=== PATIENT | male | born 1965 | race Caucasian/White ===

== ENCOUNTER 2021-09-16 09:38 | Inpatient (IN) | payer SELFPAY ==
[2021-09-16 10:17] LABS: #Basophils 0.1 thou/uL (0.0-0.2); #Eosinphils 0.1 thou/uL (0.0-0.7); #Lymphocytes 1.8 thou/uL (1.20-3.40); #Monocytes 0.7 thou/uL (0.11-0.59); #Neutrophils 9.2 thou/uL (1.40-6.50); %Basophils 0.6 % (0.0-1.0); %Eosinophils 0.8 % (0.0-10.0); %Lymphocytes 14.8 % (21.0-51.0); %Monocytes 6.1 % (0.0-10.0); %Neutrophils 77.8 % (42.0-75.0); Hemoglobin 14.7 g/dL (14.0-18.0); Mean Corpuscular Hemoglobin 26.6 pg (27.0-31.0); Mean Corpuscular Volume 83.2 fL (78.0-98.0); Mean Platelet Volume 7.7 fL (7.4-10.4); Platelet Count 195 thou/uL (130-400); RBC Distribution Width 12.1 % (11.5-14.5); Red Blood Cell (RBC) Count 5.52 mill/uL (4.70-6.10); White Blood Cell (WBC) Count 11.8 thou/uL (4.8-10.8)
[2021-09-16 10:33] LABS: ALT (SGPT) 23 U/L (8-55); AST (SGOT) 20 U/L (5-34); Albumin 3.9 g/dL (3.5-5.0); Alkaline Phosphatase 68 U/L (40-110); Anion Gap 8 mmol/L (10-20); BUN (Urea Nitrogen) 14 mg/dL (8.4-25.7); Bilirubin, Total 1.3 mg/dL (0.2-1.2); Calc. Creatinine Clearance 0 mL/min (70-130); Carbon Dioxide 34 mmol/L (22-29); Chloride 100 mmol/L (98-107); Globulin 2.2 g/dL (2.4-3.5); Glucose 198 mg/dL (70-105); Potassium 4.6 mmol/L (3.5-5.1); Protein, Total 6.1 g/dL (6.0-8.3); Sodium 137 mmol/L (136-145)
[2021-09-16 10:55] LABS: CKMB 5.3 ng/mL (0-6.6)
[2021-09-16] MEDS ORDERED: Aspirin Chewable 81 MG TAB ONE (11:01)
[2021-09-16] MEDS ORDERED: Nitroglycerin 2% Ointment 1 INCH/1 GM Packet ONE (11:01)
[2021-09-16] MEDS ORDERED: Acetaminophen 325 MG TAB PO PRN (12:27)
[2021-09-16] MEDS ORDERED: Ondansetron PF 4 MG/2 ML Vial IVP PRN (12:27)
[2021-09-16] MEDS ORDERED: Furosemide 40 MG/4 ML VIAL ONE (12:28)
[2021-09-16] MEDS ORDERED: Enoxaparin Sodium 40 MG/0.4 ML SYRINGE SC SCH (12:30)
[2021-09-16] MEDS ORDERED: Labetalol HCl 100 MG/20 ML VIAL SLOW IVP PRN (12:33)
[2021-09-16] MEDS ORDERED: Lisinopril 10 MG TAB PO SCH (12:45)
[2021-09-16] MEDS ORDERED: Nitroglycerin 0.4 MG TAB (25 Tab Bottle) SL PRN (13:14)
[2021-09-16 13:21] LABS: Hemoglobin A1c 9.4 % (4.0-6.0); Troponin I 0.028 ng/mL (< 0.028)
[2021-09-16] MEDS ORDERED: Dextrose 50% Abboject 50 ML SYRINGE SLOW IVP PRN (14:45)
[2021-09-16] MEDS ORDERED: Dextrose 5% in Water 1,000 ML IV PRN (14:45)
[2021-09-16 15:45] VITALS: BMI 38.5
[2021-09-16] MEDS ORDERED: Furosemide 40 MG/4 ML VIAL SLOW IVP SCH (16:15)
[2021-09-16] MEDS ORDERED: Spironolactone 25 MG TAB PO SCH (16:15)
[2021-09-16] MEDS: Furosemide 40 MG/4 ML VIAL SLOW IVP SCH (16:41)
[2021-09-16] MEDS ORDERED: FLU VACC QS2021-22(6MOS UP)/PF 60 MCG/0.5 ML SYRINGE IM ONE (17:00)
[2021-09-16] MEDS ORDERED: Prevnar 13-Val Conj/PF 0.5 ML SYRINGE IM ONE (17:00)
[2021-09-16] MEDS ORDERED: Carvedilol 6.25 MG TAB PO SCH (17:00)
[2021-09-16 17:01] LABS: Troponin I 0.038 ng/mL (< 0.028)
[2021-09-16] MEDS ORDERED: Communication Order-Pharmacy FS SCH (17:45)
[2021-09-16 20:22] LABS: Anion Gap 14 mmol/L (10-20); BUN (Urea Nitrogen) 17 mg/dL (8.4-25.7); Calc. Creatinine Clearance 126 mL/min (70-130); Carbon Dioxide 32 mmol/L (22-29); Chloride 94 mmol/L (98-107); Glucose 172 mg/dL (70-105); Potassium 3.8 mmol/L (3.5-5.1); Sodium 136 mmol/L (136-145)
[2021-09-16] MEDS: Sacubitril 49 MG/Valsartan 51 MG TABLET PO SCH (20:57)
[2021-09-16] MEDS: Atorvastatin Calcium 20 MG TAB PO SCH (20:57)
[2021-09-16] MEDS ORDERED: Methocarbamol 500 MG TAB PO SCH (21:15)
[2021-09-16 21:42] LABS: Magnesium 2.1 mg/dL (1.6-2.6)
[2021-09-17] MEDS ORDERED: Methocarbamol 500 MG TAB PO SCH (04:58)
[2021-09-17 05:10] LABS: #Basophils 0.1 thou/uL (0.0-0.2); #Eosinphils 0.1 thou/uL (0.0-0.7); #Monocytes 0.9 thou/uL (0.11-0.59); #Neutrophils 7.6 thou/uL (1.40-6.50); %Basophils 0.6 % (0.0-1.0); %Eosinophils 1.4 % (0.0-10.0); %Lymphocytes 18.7 % (21.0-51.0); %Monocytes 8.6 % (0.0-10.0); %Neutrophils 70.8 % (42.0-75.0); Hemoglobin 15.3 g/dL (14.0-18.0); Mean Corpuscular HGB CONC 31.2 g/dL (32.0-36.0); Mean Corpuscular Hemoglobin 26.1 pg (27.0-31.0); Mean Corpuscular Volume 83.5 fL (78.0-98.0); Platelet Count 227 thou/uL (130-400); RBC Distribution Width 12.1 % (11.5-14.5); Red Blood Cell (RBC) Count 5.87 mill/uL (4.70-6.10); White Blood Cell (WBC) Count 10.7 thou/uL (4.8-10.8)
[2021-09-17 05:28] LABS: Anion Gap 13 mmol/L (10-20); BUN (Urea Nitrogen) 15 mg/dL (8.4-25.7); Calc. Creatinine Clearance 169 mL/min (70-130); Calcium 9.1 mg/dL (7.8-10.44); Carbon Dioxide 32 mmol/L (22-29); Cardiac Risk 5.5 (Less than 4.5); Chloride 98 mmol/L (98-107); Cholesterol 248 mg/dl (< 200 Desired); Glucose 179 mg/dL (70-105); HDL Cholesterol 45 mg/dL (>60 Neg Risk); LDL Cholesterol, Calculated 171 mg/dL; Potassium 3.9 mmol/L (3.5-5.1); Sodium 139 mmol/L (136-145); Triglycerides 158 mg/dL (Less than 150)
[2021-09-17] MEDS: Morphine 4 MG/ML VIAL SLOW IVP SCH ×2 (05:56→08:14)
[2021-09-17] MEDS: Furosemide 40 MG/4 ML VIAL SLOW IVP SCH (06:30)
[2021-09-17] MEDS ORDERED: Carvedilol 6.25 MG TAB PO SCH (08:30)
[2021-09-17] MEDS ORDERED: Spironolactone 25 MG TAB PO SCH ×2 (08:30→09:00)
[2021-09-17] MEDS ORDERED: Enoxaparin Sodium 40 MG/0.4 ML SYRINGE SC SCH (09:00)
[2021-09-17] MEDS ORDERED: Lisinopril 10 MG TAB PO SCH (09:00)
[2021-09-17] MEDS: Sacubitril 49 MG/Valsartan 51 MG TABLET PO SCH ×2 (10:31→21:52)
[2021-09-17] MEDS: Aspirin 81 mg Enteric Coated Tablet PO SCH (10:31)
[2021-09-17 10:51] LABS: SARS-CoV-2 PCR by NAA Not Detected (NotDetected)
[2021-09-17] MEDS: Carvedilol 6.25 MG TAB PO SCH (17:46)
[2021-09-17] MEDS: HumaLOG 300 UNITS/3 ML VIAL SC PRN ×2 (18:47→21:52)
[2021-09-17] MEDS: Atorvastatin Calcium 20 MG TAB PO SCH (21:52)
[2021-09-18] MEDS: Sacubitril 49 MG/Valsartan 51 MG TABLET PO SCH ×2 (05:04→21:24)
[2021-09-18] MEDS: Carvedilol 6.25 MG TAB PO SCH ×3 (05:05→17:23)
[2021-09-18] MEDS: Spironolactone 25 MG TAB PO SCH (09:28)
[2021-09-18] MEDS: Aspirin 81 mg Enteric Coated Tablet PO SCH (09:28)
[2021-09-18 09:48] LABS: Anion Gap 14 mmol/L (10-20); BUN (Urea Nitrogen) 17 mg/dL (8.4-25.7); Calc. Creatinine Clearance 152 mL/min (70-130); Calcium 8.8 mg/dL (7.8-10.44); Carbon Dioxide 27 mmol/L (22-29); Chloride 100 mmol/L (98-107); Glucose 291 mg/dL (70-105); Potassium 5.1 mmol/L (3.5-5.1); Sodium 136 mmol/L (136-145)
[2021-09-18] MEDS: HumaLOG 300 UNITS/3 ML VIAL SC PRN ×2 (11:40→17:22)
[2021-09-18] MEDS: Atorvastatin Calcium 20 MG TAB PO SCH (21:24)
[2021-09-19] MEDS ORDERED: Carvedilol 25 MG TAB PO SCH (08:00)
[2021-09-19] MEDS: Spironolactone 25 MG TAB PO SCH (08:10)
[2021-09-19] MEDS: Sacubitril 49 MG/Valsartan 51 MG TABLET PO SCH ×3 (08:10→20:52)
[2021-09-19] MEDS: Carvedilol 6.25 MG TAB PO SCH (08:10)
[2021-09-19] MEDS: Aspirin 81 mg Enteric Coated Tablet PO SCH (08:10)
[2021-09-19] MEDS ORDERED: Carvedilol 6.25 MG TAB PO SCH (08:45)
[2021-09-19] MEDS ORDERED: Alogliptin 6.25 MG TAB PO SCH (09:00)
[2021-09-19] MEDS ORDERED: Midazolam HCl 2 mg/2 ml Vial ONE (09:29)
[2021-09-19] MEDS ORDERED: Ondansetron PF 4 MG/2 ML Vial ONE (10:00)
[2021-09-19] MEDS ORDERED: Sodium Chloride 0.9% 200 ML IV PRN (10:03)
[2021-09-19] MEDS ORDERED: Acetaminophen/Codeine 30-300mg Tablet PO PRN ×2 (10:03)
[2021-09-19] MEDS ORDERED: Nitroglycerin 0.4 MG TAB (25 Tab Bottle) SL PRN (10:03)
[2021-09-19] MEDS: HumaLOG 300 UNITS/3 ML VIAL SC PRN (17:01)
[2021-09-19] MEDS: Carvedilol 25 MG TAB PO SCH (17:24)
[2021-09-19] MEDS: Atorvastatin Calcium 20 MG TAB PO SCH (20:50)
[2021-09-20] MEDS: HumaLOG 300 UNITS/3 ML VIAL SC PRN ×3 (06:24→21:08)
[2021-09-20] MEDS: Carvedilol 25 MG TAB PO SCH ×2 (08:41→16:08)
[2021-09-20] MEDS: Empagliflozin 10 MG TAB PO SCH (08:41)
[2021-09-20] MEDS: Aspirin 81 mg Enteric Coated Tablet PO SCH (08:41)
[2021-09-20] MEDS: Sacubitril 49 MG/Valsartan 51 MG TABLET PO SCH ×2 (08:41→21:39)
[2021-09-20] MEDS: Spironolactone 25 MG TAB PO SCH (08:41)
[2021-09-20 08:44] LABS: Anion Gap 12 mmol/L (10-20); BUN (Urea Nitrogen) 17 mg/dL (8.4-25.7); Calc. Creatinine Clearance 158 mL/min (70-130); Calcium 9.1 mg/dL (7.8-10.44); Carbon Dioxide 29 mmol/L (22-29); Chloride 100 mmol/L (98-107); Glucose 174 mg/dL (70-105); Potassium 4.8 mmol/L (3.5-5.1); Sodium 136 mmol/L (136-145)
[2021-09-20] MEDS ORDERED: Metolazone 5 MG TAB PO SCH (13:30)
[2021-09-20] MEDS: Atorvastatin Calcium 20 MG TAB PO SCH (21:38)
[2021-09-21] MEDS: Spironolactone 25 MG TAB PO SCH (09:03)
[2021-09-21] MEDS: Aspirin 81 mg Enteric Coated Tablet PO SCH (09:03)
[2021-09-21] MEDS: Empagliflozin 10 MG TAB PO SCH (09:03)
[2021-09-21] MEDS: Sacubitril 49 MG/Valsartan 51 MG TABLET PO SCH ×2 (09:03→22:15)
[2021-09-21] MEDS: Carvedilol 25 MG TAB PO SCH ×2 (09:04→17:17)
[2021-09-21] MEDS ORDERED: Furosemide 20 MG TAB PO SCH (09:15)
[2021-09-21] MEDS: HumaLOG 300 UNITS/3 ML VIAL SC PRN ×3 (11:41→22:15)
[2021-09-21] MEDS: Furosemide 20 MG TAB PO SCH (14:05)
[2021-09-21] MEDS: Atorvastatin Calcium 20 MG TAB PO SCH (22:14)
[2021-09-22 08:33] LABS: Anion Gap 13 mmol/L (10-20); BUN (Urea Nitrogen) 26 mg/dL (8.4-25.7); Calc. Creatinine Clearance 113 mL/min (70-130); Calcium 9.8 mg/dL (7.8-10.44); Carbon Dioxide 30 mmol/L (22-29); Chloride 94 mmol/L (98-107); Glucose 264 mg/dL (70-105); Potassium 5.1 mmol/L (3.5-5.1); Sodium 132 mmol/L (136-145)
[2021-09-22] MEDS: Aspirin 81 mg Enteric Coated Tablet PO SCH (09:26)
[2021-09-22] MEDS: Carvedilol 25 MG TAB PO SCH (09:26)
[2021-09-22] MEDS: Spironolactone 25 MG TAB PO SCH (09:26)
[2021-09-22] MEDS: Sacubitril 49 MG/Valsartan 51 MG TABLET PO SCH ×2 (09:26→20:27)
[2021-09-22] MEDS: Empagliflozin 10 MG TAB PO SCH (09:26)
[2021-09-22] MEDS: Furosemide 20 MG TAB PO SCH (09:26)
[2021-09-22] MEDS: HumaLOG 300 UNITS/3 ML VIAL SC PRN ×3 (11:56→20:33)
[2021-09-22] MEDS ORDERED: Sodium Chloride 0.9% 500 ML IV SCH (17:30)
[2021-09-22] MEDS: Carvedilol 6.25 MG TAB PO SCH (18:09)
[2021-09-22] MEDS: Atorvastatin Calcium 20 MG TAB PO SCH (20:27)
[2021-09-23] MEDS: HumaLOG 300 UNITS/3 ML VIAL SC PRN (06:05)
[2021-09-23] MEDS ORDERED: Spironolactone 25 MG TAB PO SCH ×2 (08:00)
[2021-09-23 08:39] VITALS: BP 128/78; TEMP 97.6
[2021-09-23 09:04] LABS: Anion Gap 16 mmol/L (10-20); BUN (Urea Nitrogen) 33 mg/dL (8.4-25.7); Calc. Creatinine Clearance 128 mL/min (70-130); Calcium 9.4 mg/dL (7.8-10.44); Carbon Dioxide 25 mmol/L (22-29); Chloride 95 mmol/L (98-107); Glucose 165 mg/dL (70-105); Potassium 4.8 mmol/L (3.5-5.1); Sodium 131 mmol/L (136-145)
[2021-09-23] MEDS: Carvedilol 6.25 MG TAB PO SCH (10:16)
[2021-09-23] MEDS: Sacubitril 49 MG/Valsartan 51 MG TABLET PO SCH (10:17)
[2021-09-23] MEDS: Aspirin 81 mg Enteric Coated Tablet PO SCH (10:17)
[2021-09-23] MEDS: Empagliflozin 10 MG TAB PO SCH (10:17)
== END 2021-09-23 10:39 | disposition home or self-care (01) | DRG 286 ==
LOC: ERS 09:38 → 2NO 12:37
PROVIDERS: ADMIT Internal Medicine; ATTEND Internal Medicine
PROC: 4A023N7 Measurement of Cardiac Sampling and Pressure, Left Heart, Percutaneous Approach (ICD-10-PCS; principal; 2021-09-19)
PROC: B2151ZZ Fluoroscopy of Left Heart using Low Osmolar Contrast (ICD-10-PCS; 2021-09-19)
PROC: B2111ZZ Fluoroscopy of Multiple Coronary Arteries using Low Osmolar Contrast (ICD-10-PCS; 2021-09-19)
DX: I11.0 Hypertensive heart disease with heart failure (principal); I50.21 Acute systolic (congestive) heart failure; J96.01 Acute respiratory failure with hypoxia; I47.2 Ventricular tachycardia; Z20.822 Contact with and (suspected) exposure to COVID-19; E11.65 Type 2 diabetes mellitus with hyperglycemia; I42.8 Other cardiomyopathies; F17.210 Nicotine dependence, cigarettes, uncomplicated; E66.01 Morbid (severe) obesity due to excess calories; E88.81 Metabolic syndrome and other insulin resistance; Z88.1 Allergy status to other antibiotic agents; Z90.09 Acquired absence of other part of head and neck; Z68.36 Body mass index [BMI] 36.0-36.9, adult
CPT/HCPCS: 36415; 36416; 71046; 71275; 80048; 80053; 80061; 82553; 83036; 83690; 83735; 83880; 84484; 85025; 93005; 93010; 93306; 93458; 93798; 94760; 96374; 97139; 99152; J1815; J1940; J2250; J2270; J2405; J7030; U0003; U0005